=== PATIENT | female | born 1995 | race Caucasian/White ===

== ENCOUNTER 2016-10-18 10:42 | Emergency (ER) | payer BC ==
[2016-10-18] MEDS ORDERED: ONDANSETRON ODT 4 MG TAB ONE (12:57)
[2016-10-18] MEDS ORDERED: Meclizine HCl 25 MG TAB ONE (12:57)
== END 2016-10-18 14:15 | disposition home or self-care (01) ==
LOC: ER 11:10
DX: H81.13 Benign paroxysmal vertigo, bilateral (principal)
CPT/HCPCS: 36415; 70450; 80053; 81001; 83690; 84703; 85025